=== PATIENT | female | born 1940 | race Caucasian/White ===

== ENCOUNTER → 2019-05-09 11:25 | Outpatient (BNVA) | payer MEDICARE, OTHER, SELFPAY | PROVIDERS: Visit Provider Nurse Practitioner Family | DX: I10 Essential (primary) hypertension (principal); M31.6 Other giant cell arteritis; E03.9 Hypothyroidism, unspecified; E55.9 Vitamin D deficiency, unspecified; R53.83 Other fatigue; E78.5 Hyperlipidemia, unspecified | CPT/HCPCS: 80053; 80061; 82306; 82607; 84443; 85025; 85651; 86140 ==

== ENCOUNTER → 2019-11-07 11:47 | Outpatient (BNVA) | payer MEDICARE, OTHER, SELFPAY | PROVIDERS: Visit Provider Nurse Practitioner Family | DX: I10 Essential (primary) hypertension (principal); E78.5 Hyperlipidemia, unspecified; E55.9 Vitamin D deficiency, unspecified; E03.9 Hypothyroidism, unspecified | CPT/HCPCS: 80053; 80061; 82306; 84443; 85025 ==

== ENCOUNTER → 2019-11-13 12:09 | Outpatient (BNVA) | payer MEDICARE, OTHER, SELFPAY | PROVIDERS: Visit Provider Nurse Practitioner Family | DX: M25.572 Pain in left ankle and joints of left foot (principal) | CPT/HCPCS: 73610 ==

== ENCOUNTER → 2020-06-11 16:23 | Outpatient (BNVA) | payer MEDICARE, OTHER, SELFPAY | PROVIDERS: Visit Provider Nurse Practitioner Family | DX: R30.0 Dysuria (principal); E55.9 Vitamin D deficiency, unspecified; I10 Essential (primary) hypertension; E03.9 Hypothyroidism, unspecified; E78.5 Hyperlipidemia, unspecified; M81.0 Age-related osteoporosis without current pathological fracture; R59.0 Localized enlarged lymph nodes; R25.2 Cramp and spasm | CPT/HCPCS: 80053; 80061; 81000; 82306; 83735; 84443; 85025 ==

== ENCOUNTER → 2021-01-18 11:45 | Outpatient (BNVA) | payer MEDICARE, OTHER, SELFPAY | PROVIDERS: Visit Provider Nurse Practitioner Family | DX: E78.5 Hyperlipidemia, unspecified (principal); E03.9 Hypothyroidism, unspecified; E55.9 Vitamin D deficiency, unspecified; K21.9 Gastro-esophageal reflux disease without esophagitis; M31.6 Other giant cell arteritis | CPT/HCPCS: 80053; 80061; 82306; 82607; 84443; 85025; 85651 ==

== ENCOUNTER → 2021-12-30 11:50 | Outpatient (BNVA) | payer MEDICARE, OTHER, SELFPAY | PROVIDERS: Visit Provider Nurse Practitioner Family | DX: E78.5 Hyperlipidemia, unspecified (principal); I10 Essential (primary) hypertension; E55.9 Vitamin D deficiency, unspecified; E03.9 Hypothyroidism, unspecified; M81.0 Age-related osteoporosis without current pathological fracture; J40 Bronchitis, not specified as acute or chronic | CPT/HCPCS: 80053; 80061; 82306; 84443 ==

== ENCOUNTER 2022-05-17 12:47 | Outpatient (CLI) | payer MEDICARE, OTHER, SELFPAY ==
--- NOTE | 2022-05-17 13:00 | XR_ITS ---
WS: [id number] DEXA (DUAL ENERGY X-RAY ABSORPTIOMETRY) Bone mineral density was performed using a [employer] machine. HISTORY: osteoporosis COMPARISON: 04/30/2014 Lumbar spine BMD (L1-L4): 0.849 g/cm2 T score: -2.8 Z score: -1.2 Total hip BMD: Left: 0.902 g/cm2. T score: -0.8 Z score: 1.0 Right: 0.890 g/cm2. T score: -0.9 Z score: 0.9 10 year probability of a major osteoporotic fracture is 32.0%. Compared to the prior study from 04/30/2014. Lumbar spine bone mineral density has increased by 9.1%. Bilateral hips bone mineral density has decreased by 0.1%. XR/XR DEXA axial skeleton* [id number] IMPRESSION: OSTEOPOROSIS based upon the WHO classification for females. Significant increas e in bone mineral density within the lumbar spine since the prior study.
== END 2022-05-17 12:48 | disposition home or self-care (01) ==
LOC: RAD 12:51
PROVIDERS: PCP Nurse Practitioner Family; Visit Provider Nurse Practitioner Family
DX: M81.0 Age-related osteoporosis without current pathological fracture (principal)
CPT/HCPCS: 77080

== ENCOUNTER → 2022-10-20 11:18 | Outpatient (BNVA) | payer MEDICARE, OTHER, SELFPAY | PROVIDERS: PCP Nurse Practitioner Family; Visit Provider Nurse Practitioner Family | DX: K21.9 Gastro-esophageal reflux disease without esophagitis (principal); E03.9 Hypothyroidism, unspecified; E55.9 Vitamin D deficiency, unspecified; E78.5 Hyperlipidemia, unspecified; I10 Essential (primary) hypertension; M81.0 Age-related osteoporosis without current pathological fracture; N64.4 Mastodynia; Z12.31 Encounter for screening mammogram for malignant neoplasm of breast; J40 Bronchitis, not specified as acute or chronic | CPT/HCPCS: 80053; 80061; 82306; 84443 ==

== ENCOUNTER 2022-12-06 09:00 | Outpatient (CLI) | payer MEDICARE, OTHER, SELFPAY ==
--- NOTE | 2022-12-06 09:09 | US_ITS ---
WS: [id number] DIAGNOSTIC BILATERAL DIGITAL BREAST TOMOSYNTHESIS MAMMOGRAPHY WITH CAD Bilateral breast ultrasound, limited HISTORY: left breast pain and fullness COMPARISON: 05/28/2012 TECHNIQUE: Bilateral craniocaudad, mediolateral oblique, and mediolateral views are submitted with to mosrick and PAT. Spot compression views within each breast computer aided detection utilized. Breast composition: The breasts are heterogeneously dense, which may obscure small masses. Architectu ral distortion in the upper outer quadrant is very subtle near 10:00 of the RIGHT breast. This resolv es with additional imaging. The area of fullness in the LEFT breast demonstrates no abnormalities. Th ere is no distortion or mass identified. Ultrasound to be performed. Bilateral breast ultrasound, limited. RIGHT: Ultrasound to the upper outer quadrant of the RIGHT breast near 10:00 demonstrates very dense fibroglandular tissue. There is no distortion or mass identified. LEFT: Ultrasound is performed from 12-6 o'clock. In the areolar region, 6:00 there is a hypoechoic ma ss with shadowing measuring 8 x 6 x 8 mm. There is no corresponding abnormality on the mammogram. Thi s mass is taller than it is wide and very hypoechoic. No significant increased vascularity. IMPRESSION: US/US breast BI limited* [id number] BI-RADS: 4-Suspicious Finding-Biopsy Should Be Considered FOLLOW UP: Biopsy Recommended 1. Hypoechoic mass at 6:00 in the areolar region of the LEFT breast. Ultrasound -guided biopsy recommended. 2. No RIGHT breast abnormality. Notified Madyson Yin NP at 12/06/2022 11:55 AM. [facility] [place].
== END 2022-12-06 09:01 | disposition home or self-care (01) ==
PROVIDERS: PCP Nurse Practitioner Family; Visit Provider Nurse Practitioner Family
DX: N64.4 Mastodynia (principal); N63.42 Unspecified lump in left breast, subareolar
CPT/HCPCS: 76642; 77062; G0279

== ENCOUNTER 2022-12-21 10:28 | Outpatient (CLI) | payer MEDICARE, OTHER, SELFPAY ==
--- NOTE | 2022-12-21 11:45 | US_ITS ---
WS: [email or web address] ULTRASOUND-GUIDED LEFT BREAST BIOPSY HISTORY: Abnormal mammogram breast mass COMPARISON: 12/06/2022 Procedure, risks and complications are explained to the patient. Medications are reviewed. Consent is obtained. The mass in the LEFT breast is localized with ultrasound. Mass localizes to 6:00 at the areola. Skin is cleansed with ChloraPrep and anesthetized with 1% buffered lidocaine. Small dermatome is made. Und er sterile conditions mass is biopsied with a 14-gauge Achieve needle. Multiple core biopsies are per formed. Material placed in formalin and sent to pathology for review. No complications encountered. Breast tissue marker (Wikip[employer] ultrasound enhanced ribbon): Single. Patient left the radiology suite with no complications. Patient is instructed to return to [facility] or [facility] with any concerns. IMPRESSION: 1. Uncomplicated core needle biopsy LEFT breast mass at 6:00. US/[place] [id number] PATHOLOGY: Nonproliferative breast tissue. No malignancy or atypia. RECOMMENDATION: Diagnostic LEFT mammogram and ultrasound in 6 months.
== END 2022-12-21 10:29 | disposition home or self-care (01) ==
PROVIDERS: PCP Nurse Practitioner Family; Visit Provider Nurse Practitioner Family
DX: D24.2 Benign neoplasm of left breast (principal); R92.8 Other abnormal and inconclusive findings on diagnostic imaging of breast; N63.25 Unspecified lump in the left breast, overlapping quadrants
CPT/HCPCS: 19083; 88305

== ENCOUNTER 2023-06-27 15:02 | Outpatient (CLI) | payer MEDICARE, OTHER, SELFPAY ==
--- NOTE | 2023-06-27 15:10 | MM_ITS ---
WS: [id number] ADDITIONAL VIEWS LEFT MAMMOGRAM with tomosynthesis. LEFT BREAST ULTRASOUND HISTORY: ABNORMAL MAMMOGRAM OF L BREAST/PAIN, biopsy LEFT breast follow-up. COMPARISON: 05/28/2012, 12/06/2022 LEFT MAMMOGRAM: Spot compression views and true ML with tomosynthesis and sympathetic mammography. Biopsy clip in the anterior medial LEFT breast is identified at the site of the prior biopsy. There i s an underlying soft tissue mass measuring 5 mm without increase in size. Mass appears slightly small er as compared to 12/06/2022. Otherwise very dense fibroglandular tissue. LEFT BREAST ULTRASOUND 2-D and color Doppler imaging submitted. Persistent irregular hypoechoic mass in the LEFT breast at 6:00. Biopsy clip is central to the mass. Hypoechoic mass measures 0.7 x 0.5 x 0.7 cm and unchanged. IMPRESSION: MM/[place] [id number] BI-RADS: 4-Suspicious Finding-Biopsy Should Be Considered FOLLOW UP: Surgical Biopsy RecommendedEven though this mass has been previously biopsied is still remains suspicious especially by ultrasound. Suggest surgica l evaluation for possible lumpectomy. Alternatively repeat ultrasound-guided bi opsy could be obtained but the prior biopsy appeared appropriate. Notified Madyson Yin NP at 06/28/2023 8:53 AM.
--- NOTE | 2023-06-27 15:30 | US_ITS ---
WS: [email or web address] ADDITIONAL VIEWS LEFT MAMMOGRAM with tomosynthesis. LEFT BREAST ULTRASOUND HISTORY: ABNORMAL MAMMOGRAM OF L BREAST/PAIN, biopsy LEFT breast follow-up. COMPARISON: 05/28/2012, 12/06/2022 LEFT MAMMOGRAM: Spot compression views and true ML with tomosynthesis and sympathetic mammography. Biopsy clip in the anterior medial LEFT breast is identified at the site of the prior biopsy. There i s an underlying soft tissue mass measuring 5 mm without increase in size. Mass appears slightly small er as compared to 12/06/2022. Otherwise very dense fibroglandular tissue. LEFT BREAST ULTRASOUND 2-D and color Doppler imaging submitted. Persistent irregular hypoechoic mass in the LEFT breast at 6:00. Biopsy clip is central to the mass. Hypoechoic mass measures 0.7 x 0.5 x 0.7 cm and unchanged. IMPRESSION: US/US breast LT limited* [id number] BI-RADS: 4-Suspicious Finding-Biopsy Should Be Considered FOLLOW UP: Surgical Biopsy RecommendedEven though this mass has been previously biopsied is still remains suspicious especially by ultrasound. Suggest surgica l evaluation for possible lumpectomy. Alternatively repeat ultrasound-guided bi opsy could be obtained but the prior biopsy appeared appropriate. Notified Madyson Yin NP at 06/28/2023 8:53 AM.
== END 2023-06-27 15:03 | disposition home or self-care (01) ==
LOC: RAD 15:03
PROVIDERS: PCP Nurse Practitioner Family; Visit Provider Nurse Practitioner Family
DX: R92.8 Other abnormal and inconclusive findings on diagnostic imaging of breast (principal); N64.4 Mastodynia; N63.25 Unspecified lump in the left breast, overlapping quadrants
CPT/HCPCS: 76642; 77061; G0279

== ENCOUNTER 2023-10-10 13:41 | Outpatient (CLI) | payer MEDICARE, OTHER, SELFPAY ==
--- NOTE | 2023-10-10 14:00 | MM_ITS ---
WS: [id number] DIAGNOSTIC BILATERAL DIGITAL BREAST TOMOSYNTHESIS MAMMOGRAPHY WITH CAD LEFT breast ultrasound, limited. HISTORY: ABN MAMMO LEFT BREAST MASS COMPARISON: 06/27/2023, 12/06/2022 TECHNIQUE: Bilateral craniocaudad, mediolateral oblique, and mediolateral views are submitted with to mosynthesis and SM. Spot compression LEFT CC and MLO. Additional spot compression view far lateral RI GHT cc. Computer aided detection utilized. Breast composition: The breasts are heterogeneously dense, which may obscure small masses. Biopsy cli p in the anterior medial LEFT breast is identified. The associated mass is small caliber difficult to visualize but no apparent change. The asymmetry noted in the lateral RIGHT breast improves with palma tional imaging. LEFT breast ultrasound, limited. Reidentified is the hypoechoic breast mass which is taller than wide in the retroareolar region at 6: 00. This mass contains the biopsy clip and measures 0.6 x 0.5 x 0.7 cm. No interval change. Biopsy wa s negative for malignancy. MM/[place] [id number] IMPRESSION: BI-RADS: 2-Benign FOLLOW UP: 1 Year Follow-up
--- NOTE | 2023-10-10 15:11 | US_ITS ---
WS: [id number] DIAGNOSTIC BILATERAL DIGITAL BREAST TOMOSYNTHESIS MAMMOGRAPHY WITH CAD LEFT breast ultrasound, limited. HISTORY: ABN MAMMO LEFT BREAST MASS COMPARISON: 06/27/2023, 12/06/2022 TECHNIQUE: Bilateral craniocaudad, mediolateral oblique, and mediolateral views are submitted with to mosynthesis and SM. Spot compression LEFT CC and MLO. Additional spot compression view far lateral RI GHT cc. Computer aided detection utilized. Breast composition: The breasts are heterogeneously dense, which may obscure small masses. Biopsy cli p in the anterior medial LEFT breast is identified. The associated mass is small caliber difficult to visualize but no apparent change. The asymmetry noted in the lateral RIGHT breast improves with palma tional imaging. LEFT breast ultrasound, limited. Reidentified is the hypoechoic breast mass which is taller than wide in the retroareolar region at 6: 00. This mass contains the biopsy clip and measures 0.6 x 0.5 x 0.7 cm. No interval change. Biopsy wa s negative for malignancy. US/US breast LT limited* [id number] IMPRESSION: BI-RADS: 2-Benign FOLLOW UP: 1 Year Follow-up
== END 2023-10-10 13:42 | disposition home or self-care (01) ==
LOC: RAD 13:41
PROVIDERS: PCP Nurse Practitioner Family; Visit Provider Nurse Practitioner Family
DX: N63.24 Unspecified lump in the left breast, lower inner quadrant (principal); R92.8 Other abnormal and inconclusive findings on diagnostic imaging of breast; R92.333 Mammographic heterogeneous density, bilateral breasts; N64.89 Other specified disorders of breast; N63.10 Unspecified lump in the right breast, unspecified quadrant
CPT/HCPCS: 76642; 77062; G0279

== ENCOUNTER → 2023-11-13 09:35 | Outpatient (BNVA) | payer MEDICARE, OTHER, SELFPAY | PROVIDERS: PCP Nurse Practitioner Family; Visit Provider Nurse Practitioner Family | DX: I10 Essential (primary) hypertension (principal); E78.5 Hyperlipidemia, unspecified; E03.9 Hypothyroidism, unspecified; R53.83 Other fatigue; U07.1 COVID-19; M81.0 Age-related osteoporosis without current pathological fracture | CPT/HCPCS: 80053; 80061; 82306; 82607; 82746; 83550; 84443; 85025 ==

== ENCOUNTER → 2024-11-27 13:37 | Outpatient (BNVA) | payer MEDICARE, OTHER, SELFPAY | PROVIDERS: PCP Nurse Practitioner Family; Visit Provider Nurse Practitioner Family | DX: M81.0 Age-related osteoporosis without current pathological fracture (principal); I10 Essential (primary) hypertension | CPT/HCPCS: 80053; 80061; 82306; 82607; 84443; 85025 ==

== ENCOUNTER 2024-12-24 13:30 | Outpatient (CLI) | payer MEDICARE, OTHER, SELFPAY ==
--- NOTE | 2024-12-24 13:30 | XR_ITS ---
WS: [email or web address] SCREENING DEXA SCAN [facility]bookin ([place]) CLINICAL INFORMATION: M81.0 - Age-related osteoporosis without current patholog... COMPARISON: None. FINDINGS: The L1-L4 bone mineral density measures 0.774 g/cm2. This corresponds to a T score score of -3.4 and Z score of -1.7. Left femoral neck bone mineral density measures 0.892 g/cm2. This corresponds to a T score of -0.9 and Z score of 1.1. Right femoral neck bone mineral density measures 0.894 g/cm2. This corresponds to a T score -0.9of and Z score of 1.1. Mean femoral neck bone mineral density measures 0.893 g/cm2. This corresponds to a T score of -0.9 and Z score of 1.1. XR/XR DEXA axial skeleton* [id number] IMPRESSION: Osteoporosis lumbar spine. Normal bone mineralization both femurs approaching o steopenia. Patient's FRAX calculated 10 year probability for major osteoporotic fracture i s 36.6% and osteoporotic hip fracture is 22.7%. Bone density lumbar spine decrease -8.8% Bone density femoral necks decreased -0.3%
== END 2024-12-24 13:31 | disposition home or self-care (01) ==
LOC: RAD 13:32
PROVIDERS: PCP Nurse Practitioner Family; Visit Provider Nurse Practitioner Family
DX: Z13.820 Encounter for screening for osteoporosis (principal); M81.0 Age-related osteoporosis without current pathological fracture; M81.8 Other osteoporosis without current pathological fracture
CPT/HCPCS: 77080